=== PATIENT | male | born 1970 | race Two or more races ===

== ENCOUNTER 2018-01-08 07:46 | Emergency (ER) | payer BC ==
[2018-01-08 07:57] VITALS: TEMP 98.6; BMI 26.3
--- NOTE | 2018-01-08 08:02 | PDOC ---
History of Present Illness - General Chief Complaint: Chest Pain Stated Complaint: CHEST PAIN Time Seen by Provider: 01/08/18 08:02 - History of Present Illness Initial Comments: 01/08/18 08:21 The patient is a 47 year old male with no significant PMH who presents for evaluation of chest pain. The patient reports a 1 week history of intermittent sharp 5/10 sternal chest pain not associated with exertion prompting his presentation to the ED. He states that his pain currently is 1/10. He denies a family history of heart disease and otherwise denies fevers, chills, cough, SOB, nausea, vomiting, abdominal pain, or changes with urination or bowel movements. Past History - Past Medical History Allergies/Adverse Reactions: Allergies Allergy/AdvReac Type Severity Reaction Status Date / Time No Known Allergies Allergy Verified 01/08/18 07:53 Home Medications: Ambulatory Orders No Home Medications 0 dose .ROUTE UTDICT 12/25/12 COPD: No - Suicide/Smoking/Psychosocial Hx Smoking Status: No Smoking History: Never smoked Have you smoked in the past 12 months: No Number of Cigarettes Smoked Daily: 0 Information on smoking cessation initiated: No Hx Alcohol Use: No Drug/Substance Use Hx: No Substance Use Type: None Review of Systems - Review of Systems Comments:: 01/08/18 08:23 Constitutional: No fevers, chills, fatigue, malaise HEENT: No Rhinorrhea, nasal congestion, visual changes Cardiovascular: Chest pain. No syncope, palpitations, lightheadedness Respiratory: No Cough, SOB, Hemoptysis, Gastrointestinal: No Abdominal pain, Nausea, Vomiting, Constipation, Diarrhea, Melena Genitourinary: No Dysuria, Frequency, Urgency, Hesitancy, Hematuria, Flank pain Musculoskeletal: No Myalgia, arthralgia Skin: No rashes, itching, bruising, pallor Neurologic: No Headache, Dizziness, Numbness, Weakness, or Tingling Psychiatric: No Hallucinations. No SI or HI *Physical Exam - Vital Signs Last Vital Signs Temp Pulse Resp BP Pulse Ox 98.6 F 69 18 114/76 100 01/08/18 07:53 01/08/18 07:53 01/08/18 07:53 01/08/18 07:53 01/08/18 07:53 - Physical Exam Comments: 01/08/18 08:24 General Appearance: Nourished. No Apparent Distress HEENT: EOMI, ELLEN. No Pharyngeal Erythema, Tonsillar Exudate, Tonsillar Erythema Neck: No Cervical Lymphadenopathy Respiratory/Chest: Lungs Clear, Normal Breath Sounds. No Crackles, Rales, Rhonchi, Wheezing Cardiovascular: Regular Rhythm, Regular Rate. No Murmur, Gallops, Rubs Gastrointestinal/Abdominal: Normal Bowel Sounds, Soft. No Guarding, Rebound, Tenderness Musculoskeletal: No CVA Tenderness Extremity: Normal Capillary Refill Integumentary: Normal Color, Dry, Warm Neurologic: Fully Oriented, Alert, Normal Mood/Affect, Normal Response, Heart Score/ECG Review - History History: Slightly suspicious - Electrocardiogram EKG: Normal - Age Age: 45-65 - Risk Factors Based on the list above the patient has:: No risk factors known - Troponin Troponin: </= normal limit - Score Heart Score - Total: 1 #1 ECG reviewed & interpreted by me at: 08:12 General ECG Interpretation: Sinus Rhythm, Normal Rate, Normal Intervals, No acute ischemic changes Compared to previous ECG there are: Previous ECG unavail ED Treatment Course - LABORATORY CBC & Chemistry Diagram: 01/08/18 08:20 01/08/18 08:20 Medical Decision Making - Medical Decision Making 01/08/18 08:25 The patient is a 47 year old male with no significant PMH who presents for evaluation of chest pain. Differential includes but is not limited to: ACS, Musculoskeletal, Pneumonia, infectious, metabolic derangement. Given the patient's history and physical exam, it is likely the patient's symptoms is musculoskeletal in nature. The patient does not have PE risk factors and has minimal risk factors for ACS. However we will obtain a cbc, cmp, troponin, ekg , and chest plain film to evaluate for possible etiologies. We will continue to monitor and reassess in the meantime. 01/08/18 09:25 CBC, cmp, troponin are unremarkable. Chest plain film is unremarkable as preliminarily read by ER physician. We discussed the case with the patient's primary care provider Dr. Schultz who has been made aware of the case and will see the patient for follow up in the office at 1:30pm Tomorrow. We are comfortable discharging the patient home at this time with primary care provider follow up. We discussed the results, plan, and strict return precautions with the patient who voiced understanding and is agreeable with the plan. *DC/Admit/Observation/Transfer Diagnosis at time of Disposition: Chest pain Qualifiers: Chest pain type: unspecified Qualified Code(s): R07.9 - Chest pain, unspecified - Discharge Dispostion Disposition: HOME Condition at time of disposition: Good Admit: No - Referrals Referrals: Williams Schultz MD [Primary Care Provider] - Micheal Cole MD [Staff Physician] - - Patient Instructions Printed Discharge Instructions: DI for Atypical Chest Pain Additional Instructions: Please return to the ER if you experience concerning or worsening symptoms including worsening pain, difficulty breathing, or vomiting. Your lab results were normal here in the ER. Your chest x-ray and EKG were normal here in the ER. We discussed your case with your primary care provider Dr. Schultz who would like to see you in his office tomorrow at 1:30pm. Please follow up with your primary care provider tomorrow as discussed to further discuss management of your symptoms. - Post Discharge Activity Forms/Work/School Notes: Back to Work
--- NOTE | 2018-01-08 08:06 | PDOC ---
Attending Attestation - Resident Resident Name: Roger Palomino - ED Attending Attestation I have performed the following: I have examined & evaluated the patient, The case was reviewed & discussed with the resident, I agree w/resident's findings & plan, Exceptions are as noted - HPI HPI: 01/10/18 09:48 Mr Elias is a 47 yo otherwise healthy male (no h/o DM, HTN, HLD, tobacco use) who presents to the ER with a complaint of chest pain Pt reports having pain three days ago. Notes pain in the morning. Symptoms last 10 minutes and resolve spontaneously. Pt denies nausea, vomiting, diaphoresis No pain radiating to the back or arm He states that his pain currently is 1/10. No exertional symptoms noted No prior episodes like this Denies a family history of heart disease No recent fevers or chills No recent travel, lower extremity edema - Physicial Exam PE: 01/10/18 09:52 GENERAL: The patient is in no acute distress. LUNGS: Breath sounds equal, clear to auscultation bilaterally. No wheezes, and no crackles. HEART:Regular rate and rhythm, normal S1 and S2 without murmur, rub or gallop. ABDOMEN: Soft, nontender EXTREMITIES: Normal range of motion NEUROLOGICAL: Cranial nerves II through XII grossly intact. Normal speech. No focal neurological deficits. - Medical Decision Making 01/10/18 09:52 47 yo M presenting to the ER with a complaint of chest pain Pt has a HEART score of 1 (based on age) Low risk wells, PERC negative 01/10/18 09:54 Laboratory Tests 01/08/18 08:20 BUN 22 H Creatinine 1.1 D Creatine Kinase 356 H Creatine Kinase Index 0.8 CK-MB (CK-2) 2.927 Troponin I 0.02 CXR: nml Will discharge to home Follow up with PMD musculoskeletal vs pericarditis Pt will still need expedited cardiac work up Case discussed with pt PMD who will see this patient in the office tomorrow Clinical Impression: chest pain, initial presentation
[2018-01-08 08:29] LABS: BASO % 0.7 % (0-2.0); EOS % 3.8 % (0-4.5); HEMATOCRIT 44.6 % (35.4-49); HEMOGLOBIN 15.4 GM/dL (11.7-16.9); LYMPH % 38.6 % (8-40); MCH 32.3 pg (25.7-33.7); MCHC 34.6 g/dl (32.0-35.9); MEAN CELL VOLUME 93.5 fl (80-96); MEAN PLT VOLUME 7.1 fl (7.5-11.1); MONO % 13.9 % (3.8-10.2); PLATELET COUNT 183 K/MM3 (134-434); RBC 4.76 M/mm3 (4.00-5.60); RDW 12.4 % (11.9-15.9); WHITE BLOOD COUNT 3.8 K/mm3 (4.0-10.0)
[2018-01-08 08:58] LABS: ALBUMIN 3.6 g/dl (3.4-5.0); ANION GAP 5 (8-16); BLOOD UREA NITROGEN 22 mg/dL (7-18); CALCIUM 8.3 mg/dL (8.5-10.1); CHLORIDE 106 mmol/L (98-107); CO2 29 mmol/L (21-32); GLUCOSE,RANDOM 119 mg/dL (74-106); POTASSIUM 3.9 mmol/L (3.5-5.1); SODIUM 140 mmol/L (136-145)
[2018-01-08 09:04] LABS: ALK PHOS 71 U/L (45-117); CREATININE 1.1 mg/dL (0.7-1.3); SGOT/AST 28 U/L (15-37); SGPT/ALT 41 U/L (12-78); TOT PROT 7.3 g/dl (6.4-8.2)
[2018-01-08 09:52] VITALS: BP 122/77; PULSE 18
--- NOTE | 2018-01-08 10:41 | EKG ---
Test Reason : Blood Pressure : / mmHG Vent. Rate : 061 BPM Atrial Rate : 061 BPM P-R Int : 140 ms QRS Dur : 086 ms QT Int : 374 ms P-R-T Axes : 065 054 043 degrees QTc Int : 376 ms NORMAL SINUS RHYTHM POSSIBLE LEFT ATRIAL ENLARGEMENT INCOMPLETE RIGHT BUNDLE BRANCH BLOCK BORDERLINE ECG NO PREVIOUS ECGS AVAILABLE Confirmed by LATRICE MCMAHON MD ([id number]) on 01/08/2018 10:40:57 AM Referred By: Confirmed By:LATRICE MCMAHON MD
== END 2018-01-08 09:50 | disposition home or self-care (01) ==
LOC: JER 07:46
DX: R07.89 Other chest pain (principal)
CPT/HCPCS: 36415; 71046-TC-FY; 80053; 82550; 82553; 84484; 85025; 93005; 93010; 99283-25

== ENCOUNTER 2019-06-05 11:22 | Emergency (ER) | payer BC ==
[2019-06-05 11:27] VITALS: BP 116/75; PULSE 65; TEMP 97.8; BMI 26.2
[2019-06-05] MEDS ORDERED: RANITIDINE HCL 150 MG TABLET (FP) PO ONE (11:41)
[2019-06-05] MEDS ORDERED: predniSONE 20 MG TABLET (UD) PO ONE (11:41)
[2019-06-05] MEDS ORDERED: RANITIDINE HCL 150 MG TABLET (FP) ONE (11:58)
[2019-06-05] MEDS ORDERED: predniSONE 20 MG TABLET (UD) ONE (11:58)
--- NOTE | 2019-06-05 12:29 | PDOC ---
History of Present Illness - General Chief Complaint: Allergic Reaction Stated Complaint: R/O ALLERGIC REACTION Time Seen by Provider: 06/05/19 11:38 History Source: Patient - History of Present Illness Timing/Duration: other (prior to arrival) Associated Symptoms: denies: cough Past History - Past Medical History Allergies/Adverse Reactions: Allergies Allergy/AdvReac Type Severity Reaction Status Date / Time No Known Allergies Allergy Verified 06/05/19 11:28 Home Medications: Ambulatory Orders No Home Medications 0 dose .ROUTE UTDICT 12/25/12 Diphenhydramine HCl [Benadryl -] 25 mg PO Q6H #28 capsule 06/05/19 EPINEPHrine (EPI-PEN 0.3MG) [Epipen 0.3MG -] 0.3 mg IM ASDIR #2 pens 06/05/19 Famotidine [Pepcid] 20 mg PO DAILY #7 tablet 06/05/19 Prednisone [Deltasone] 40 mg PO DAILY #8 tablet 06/05/19 COPD: No - Suicide/Smoking/Psychosocial Hx Smoking Status: No Smoking History: Never smoked Have you smoked in the past 12 months: No Number of Cigarettes Smoked Daily: 0 Information on smoking cessation initiated: No Hx Alcohol Use: No Drug/Substance Use Hx: No Substance Use Type: None Review of Systems - Review of Systems Respiratory: No: Cough, Shortness of Breath, Wheezing Integumentary: No: Pruritus, Rash *Physical Exam - Vital Signs Last Vital Signs Temp Pulse Resp BP Pulse Ox 97.8 F 65 19 116/75 98 06/05/19 11:25 06/05/19 11:25 06/05/19 11:25 06/05/19 11:25 06/05/19 11:25 - Physical Exam General Appearance: Yes: Appropriately Dressed. No: Apparent Distress HEENT: positive: Normal Voice, Other (minimal L periorbital edema, no angioedema ) Neck: positive: Supple Respiratory/Chest: positive: Lungs Clear, Normal Breath Sounds. negative: Respiratory Distress, Stridor, Wheezing Cardiovascular: positive: Regular Rate, S1, S2 Integumentary: positive: Dry, Warm Neurologic: positive: Fully Oriented, Alert, Normal Mood/Affect Medical Decision Making - Medical Decision Making 06/05/19 11:56 49 yo h/o HTN, presents after developing throat discomfort and L periorbital swelling that started shortly after undergoing CT w/ IV dye this am. Procedure was immediately discontinued per pt. States throat discomfort has since resolved. No rash, itching, stridor, wheezing or SOB. No IV dye in the past and reports no known food/drug allergies. Pt states he was undergoing CT for L flank pain x 1 month, worsen when doing certain activities at work. No sxs, n /v/f/c see exam Allergic rxn to IV contrast Since improved Exam remarkable for minimal edema to L periorbital area, no angioedema w/ clear chest/lungs -benadryl -pred -H2 angelina -period of OBs 06/05/19 12:47 Dr Williams Schultz made aware of pt's ED visit. 06/05/19 13:18 After period of OBs here. Pt remained well allan and stable, currently drinking coffee and chatting w/ . Mild L periorbital edema since improved. Pt asx otherwise. Will dc/w meds and epipen. Strict return precautions given. Pt made aware that Dr Schultz was made aware and will f/u with pt regarding CT results. *DC/Admit/Observation/Transfer Diagnosis at time of Disposition: Allergic reaction Qualifiers: Encounter type: initial encounter Qualified Code(s): T78.40XA - Allergy, unspecified, initial encounter - Discharge Dispostion Disposition: HOME Condition at time of disposition: Improved - Prescriptions Prescriptions: Diphenhydramine HCl [Benadryl -] 25 mg PO Q6H #28 capsule EPINEPHrine (EPI-PEN 0.3MG) [Epipen 0.3MG -] 0.3 mg IM ASDIR #2 pens Famotidine [Pepcid] 20 mg PO DAILY #7 tablet Prednisone [Deltasone] 40 mg PO DAILY #8 tablet - Referrals - Patient Instructions Printed Discharge Instructions: DI for Eye Allergic Reaction Additional Instructions: Continue to take medications as directed Please return for worsening of symptoms Continue to follow up with Dr Schultz - Post Discharge Activity Forms/Work/School Notes: Back to Work
== END 2019-06-05 13:30 | disposition home or self-care (01) ==
LOC: JERFT 11:22
PROC: 3E023GC Introduction of Other Therapeutic Substance into Muscle, Percutaneous Approach (ICD-10-PCS; principal; 2019-06-05)
DX: R60.0 Localized edema (principal); T50.8X5A Adverse effect of diagnostic agents, initial encounter; Y92.238 Other place in hospital as the place of occurrence of the external cause
CPT/HCPCS: 99281-25

== ENCOUNTER 2022-09-04 22:44 | Emergency (ER) | payer BC, OTHER ==
[2022-09-04 23:16] VITALS: BP 119/77; PULSE 66; RESP 18; TEMP 98.2; BMI 26.3
[2022-09-04] MEDS ORDERED: ACETAMINOPHEN 1000 MG/100 ML BAG IVPB ONE (23:56)
[2022-09-04] MEDS ORDERED: METOCLOPRAMIDE HCL INJECTION 10 MG/2 ML VIAL IVPB ONE (23:56)
[2022-09-04] MEDS ORDERED: SODIUM CHLORIDE 0.9% 500 ML INFUS.BAG IV ONE (23:56)
[2022-09-04] MEDS ORDERED: KETOROLAC TROMETHAMINE 15 MG/ML VIAL IVPUSH ONE (23:57)
[2022-09-05] MEDS ORDERED: ACETAMINOPHEN INJECTION 100 ML IVPB ONE (00:10)
[2022-09-05] MEDS ORDERED: METOCLOPRAMIDE HCL INJECTION 10 MG/2 ML VIAL ONE (00:12)
[2022-09-05] MEDS ORDERED: KETOROLAC TROMETHAMINE 15 MG/ML VIAL ONE (00:12)
[2022-09-05 00:30] LABS: BASO % 0.6 % (0-2.0); EOS % 2.4 % (0-4.5); HEMATOCRIT 42.2 % (35.4-49); HEMOGLOBIN 14.6 GM/dL (11.7-16.9); LYMPH % 37.4 % (8-40); MCH 32.4 pg (25.7-33.7); MCHC 34.7 g/dl (32.0-35.9); MEAN CELL VOLUME 93.4 fl (80-96); MEAN PLT VOLUME 6.9 fl (7.5-11.1); MONO % 12.8 % (3.8-10.2); NEUT % 46.8 % (42.8-82.8); PLATELET COUNT 238 10^3/uL (134-434); RBC 4.52 M/mm3 (4.00-5.60); RDW 12.4 % (11.9-15.9); WHITE BLOOD COUNT 5.6 K/mm3 (4.0-10.0)
[2022-09-05 00:51] LABS: CALCIUM 9.1 mg/dL (8.5-10.1)
[2022-09-05 00:52] LABS: ALBUMIN 3.4 g/dl (3.4-5.0); BLOOD UREA NITROGEN 24.6 mg/dL (7-18)
[2022-09-05 00:55] LABS: CREATININE 1.1 mg/dL (0.55-1.3)
[2022-09-05 00:56] LABS: TOT PROT 7.3 g/dl (6.4-8.2)
[2022-09-05 00:57] LABS: BILIRUBIN,TOTAL 0.6 mg/dL (0.2-1)
== END 2022-09-05 01:27 | disposition home or self-care (01) ==
LOC: JER 22:44
PROC: 3E0333Z Introduction of Anti-inflammatory into Peripheral Vein, Percutaneous Approach (ICD-10-PCS; principal; 2022-09-04)
PROC: 3E033GC Introduction of Other Therapeutic Substance into Peripheral Vein, Percutaneous Approach (ICD-10-PCS; 2022-09-04)
PROC: 3E0333Z Introduction of Anti-inflammatory into Peripheral Vein, Percutaneous Approach (ICD-10-PCS; 2022-09-04)
PROC: 3E033GC Introduction of Other Therapeutic Substance into Peripheral Vein, Percutaneous Approach (ICD-10-PCS; 2022-09-04)
DX: R51.9 Headache, unspecified (principal)
CPT/HCPCS: 36415; 70450-TC; 80053; 85025; 99284-25

== ENCOUNTER 2023-06-23 08:24 | Emergency (ER) | payer BC ==
[2023-06-23 08:33] VITALS: BP 123/78; PULSE 60; RESP 16; TEMP 98.2; BMI 26.3
[2023-06-23] MEDS ORDERED: LIDOCAINE 5% TOPICAL PATCH TP ONE (09:29)
[2023-06-23] MEDS ORDERED: ACETAMINOPHEN 1000 MG/100 ML BAG IVPB ONE (09:29)
[2023-06-23] MEDS ORDERED: SODIUM CHLORIDE 0.9% 500 ML INFUS.BAG IV ONE (09:29)
[2023-06-23] MEDS ORDERED: ACETAMINOPHEN INJECTION 100 ML IVPB ONE (09:53)
[2023-06-23] MEDS ORDERED: LIDOCAINE 4% PATCH TP ONE (09:53)
[2023-06-23 10:20] LABS: BASO % 0.4 % (0-2.0); EOS % 2.5 % (0-4.5); HEMATOCRIT 44.7 % (35.4-49); HEMOGLOBIN 14.9 GM/dL (11.7-16.9); LYMPH % 37.8 % (8-40); MCH 31.3 pg (25.7-33.7); MCHC 33.4 g/dl (32.0-35.9); MEAN CELL VOLUME 93.9 fl (80-96); MEAN PLT VOLUME 7.1 fl (7.5-11.1); MONO % 13.8 % (3.8-10.2); NEUT % 45.5 % (42.8-82.8); PLATELET COUNT 218 10^3/uL (134-434); RBC 4.77 M/mm3 (4.00-5.60); RDW 12.1 % (11.9-15.9); WHITE BLOOD COUNT 4.4 K/mm3 (4.0-10.0)
[2023-06-23 10:36] LABS: POTASSIUM 4.5 mmol/L (3.5-5.1)
[2023-06-23 10:39] LABS: BLOOD UREA NITROGEN 23.1 mg/dL (7-18); CALCIUM 8.9 mg/dL (8.5-10.1); MAGNESIUM 2.3 mg/dL (1.8-2.4)
[2023-06-23 10:40] LABS: ALBUMIN 3.7 g/dl (3.4-5.0)
[2023-06-23 10:44] LABS: BILIRUBIN,TOTAL 0.9 mg/dL (0.2-1); TOT PROT 7.7 g/dl (6.4-8.2)
[2023-06-23 10:48] LABS: PH,URINE 5.5 (5.0-8.0); URINE APPEARANCE CLEAR; URINE BILIRUBIN NEGATIVE (NEGATIVE); URINE COLOR YELLOW; URINE GLUCOSE (UA) NEGATIVE (NEGATIVE); URINE KETONE NEGATIVE (NEGATIVE); URINE LEUK ESTERASE NEGATIVE (NEGATIVE); URINE NITRITE NEGATIVE (NEGATIVE); URINE PROTEIN NEGATIVE (NEGATIVE); URINE UROBILINOGEN 0.2 mg/dL (0.2-1.0)
[2023-06-23] MEDS ORDERED: LIDOCAINE PATCH REMOVAL MC ONE (22:00)
== END 2023-06-23 11:03 | disposition home or self-care (01) ==
LOC: JER 08:24
PROC: 3E033NZ Introduction of Analgesics, Hypnotics, Sedatives into Peripheral Vein, Percutaneous Approach (ICD-10-PCS; principal; 2023-06-23)
DX: R10.31 Right lower quadrant pain (principal)
CPT/HCPCS: 36415; 80053; 81003; 83735; 85025; 87086; 93005; 93010; 99284-25